=== PATIENT | male | born 1945 | race African-American/Black ===

== ENCOUNTER → 2016-06-26 | Outpatient (CLI) | payer MEDICARE, OTHER | LOC: OD 08:17 | PROVIDERS: ATTEND Radiology Radiation Oncology | DX: C61 Malignant neoplasm of prostate (principal) | CPT/HCPCS: 36415; 84153 ==

== ENCOUNTER → 2016-09-25 | Outpatient (CLI) | payer MEDICARE, OTHER | LOC: OD 15:06 | PROVIDERS: ATTEND Radiology Radiation Oncology | DX: C61 Malignant neoplasm of prostate (principal) | CPT/HCPCS: 36415; 84153 ==

== ENCOUNTER → 2017-01-05 | Outpatient (CLI) | payer MEDICARE, OTHER | LOC: OD 11:09 | PROVIDERS: ATTEND Radiology Radiation Oncology | DX: C61 Malignant neoplasm of prostate (principal) | CPT/HCPCS: 36415; 84153 ==

== ENCOUNTER → 2017-04-06 | Outpatient (CLI) | payer MEDICARE, OTHER | LOC: OD 13:04 | PROVIDERS: ATTEND Radiology Radiation Oncology | DX: C61 Malignant neoplasm of prostate (principal) | CPT/HCPCS: 36415; 84153 ==

== ENCOUNTER → 2017-10-22 | Outpatient (CLI) | payer MEDICARE, OTHER | LOC: OD 13:05 | PROVIDERS: ATTEND Radiology Radiation Oncology | DX: C61 Malignant neoplasm of prostate (principal); R97.20 Elevated prostate specific antigen [PSA] | CPT/HCPCS: 36415; 84153 ==

== ENCOUNTER → 2018-04-17 | Outpatient (CLI) | payer MEDICARE, OTHER | LOC: OD 13:43 | PROVIDERS: ATTEND Radiology Radiation Oncology | DX: C61 Malignant neoplasm of prostate (principal) | CPT/HCPCS: 36415; 84153 ==

== ENCOUNTER → 2019-06-03 | Outpatient (CLI) | payer MEDICARE, OTHER ==
[2019-06-03 17:26] LABS: ASPARTATE AMINO TRANSFERASE 42 U/L (17-59)
== END ==
LOC: OD 16:16
PROVIDERS: ATTEND Preventive Medicine Undersea and Hyperbaric Medicine
DX: B35.1 Tinea unguium (principal)
CPT/HCPCS: 36415; 84450; 84460

== ENCOUNTER → 2019-07-16 | Outpatient (CLI) | payer MEDICARE, OTHER ==
--- NOTE | 2019-07-17 12:22 | XCELERA REPORT ---
[address] [address] Lower Extremity Arterial Evaluation Name: LILIYA CASILLAS Age: 73 yrs Gender: Male : 1945 Patient Status: Outpatient Patient Location: [facility] Study Date: 07/16/2019 02:58 PM Procedure: A color flow and duplex scan of the lower extremity arteries was performed bilaterally with velocity and waveform anaylsis. Ankle brachial indicies performed. PPG's performed. Reason For Study: PAD Ordering Physician: MEAGHAN EDGE Performed By: Dejon Rosales Measurements and Calculations Right Left TELEGRAPHER AGENT PSV 105.6 101.2 cm/sec Prox PFA PSV -76.4 -91.5 cm/sec Prox SFA PSV 81.6 100.6 cm/sec Mid SFA PSV -88.2 -118.0cm/sec Dist SFA PSV -110.6 -79.4 cm/sec Prox Pop A PSV 75.1 67.7 cm/sec Dist JHONNY PSV 102.6 64.6 cm/sec Dist CASE RESOLUTION SPECIALIST PSV 102.6 98.2 cm/sec Lc Pedis PSV 91.2 78.6 cm/sec Right Side Arterial Evaluation Vessel boothe smooth, with on observed plaque. Normal velocity and triphasic waveforms noted from the Common Femoral artery to the infrageniculate vessels . Ankle Brachial index 1.13. PPG's are multiphasic, normal amplitude. Left Side Arterial Evaluation Vessel boothe smooth, with on observed plaque. Normal velocity and triphasic waveforms noted from the Common Femoral artery to the infrageniculate vessels . Ankle Brachial index 1.10. PPG's are multiphasic, normal amplitude. Interpretation Summary No hemodynamically significant lesions in the bilateral lower extremities, on duplex imaging, at rest. TYLOR's are normal, suggesting absence of significant arterial obstructive disease. PPG' are normal, suggesting normal arterial supply at the digital level. : MEAGHAN EDGE > Kaz Morillo
== END ==
LOC: SP 14:25
PROVIDERS: ATTEND Preventive Medicine Undersea and Hyperbaric Medicine
DX: I70.25 Atherosclerosis of native arteries of other extremities with ulceration (principal)
CPT/HCPCS: 93922; 93925

== ENCOUNTER 2020-03-10 06:33 | Day surgery (SDC) | payer MEDICARE, OTHER ==
[~2020-03-10 06:33] MED LIST: ACETAMINOPHEN 1,000 MG/100 ML RTUPB IV ONE; CEFAZOLIN 1 GM/D5W RTU 1 GM/50 ML RTUPB IV PRN; CLINDAMYCIN 600 MG/D5W RTU 600 MG/50 ML RTUPB IV PRN; DEXMEDETOMIDINE INJ 80 MCG/20 ML VIAL IV ONE; MIDAZOLAM 2 MG/2 ML INJ ONE; MORPHINE SULFATE 10 MG/ML INJ ONE; ONDANSETRON HCL INJ/PF 4 MG/2 ML SDV ONE; PROPOFOL INJ 200 MG/20 ML VIAL IV ONE
[2020-03-10] MEDS ORDERED: BUPIVACAINE HCL 0.5 % INJ/PF 30 ML SDV ONE ×3 (06:34→08:07)
[2020-03-10] MEDS ORDERED: LIDOCAINE 2% INJ (20 MG/ML) 20 ML MDV ONE ×2 (06:34→07:15)
[2020-03-10] MEDS ORDERED: LIDOCAINE 0.5% INJ-PF (5 MG/ML) 50 ML SDV ONE (08:06)
[2020-03-10] MEDS: BACITRACIN INJ 50,000 UNIT VIAL ONE ×2 (08:22→08:31)
[2020-03-10] MEDS: POLYMYXIN B SULFATE INJ 500000 UNIT VIAL ONE ×2 (08:22→08:31)
[2020-03-10] MEDS: BUPIVACAINE INJ/PF LIPOSOME/PF 266 MG/20 ML SDV ONE ×2 (08:23→09:12)
[2020-03-10] MEDS: NORMAL SALINE INJ/PF 0.9% 10 ML SDV ONE ×2 (08:23→08:31)
--- NOTE | 2020-03-10 09:46 | Operative Report ---
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 POSTOPERATIVE DIAGNOSIS: Same. OPERATION: Arthroplasty of the first metatarsophalangeal joint with insertion of Arriaza double stem implant, right foot. SURGEON: MEAGHAN PIEDRA ANIMAL LABORATORY HELPER: JESUS DANIEL ANESTHESIA: LMAC COMPLICATIONS: None. ESTIMATED BLOOD LOSS: Less than 1.0 mL. PROCEDURE: On 03/10/2020 patient was admitted surgery care with complaint of painful right foot. Patient was taken the operating room where following the induction of intravenous sedation and regional local anesthesia to the right foot, the patient's right foot and extremity were prepped and draped in usual sterile manner. At that time attention was directed to the dorsal aspect of the first metatarsal phalangeal joint, where a 5 cm linear incision was placed medial to the long extensor tendon. Incision was deepened through the subcutaneous tissue, all bleeding vessels were cauterized or clamped as necessary for hemostasis. Incision was carried down to the capsular and periosteal structures, for the long extensor tendon was identified freed from surrounding soft tissue attachments and retracted laterally for preservation. Should be noted that there was some yellowish degeneration of the proximal portion of the long extensor tendon. An incision was made into the capsular and periosteal structures in a similar fashion as the skin incision. Capsular structures were freed from the surrounding soft tissue attachments and retracted mediolaterally for preservation. Utilizing a power sagittal saw the base of the proximal phalanx was osteotomized perpendicular to its long axis and approximately 1 cm distal to its base. The head of the first metatarsal was likewise osteotomized parallel to the original osteotomy of the base of the phalanx and removing approximately 2 mm wedge of bone from the head of the metatarsal. Bone fragments were removed in toto. Although osteophytes and hypertrophic bone formation was then removed with a combination of hand-held and power instrumentation. At that time a drill hole was placed in the first metatarsal shaft approximately midline likewise similar drill hole was placed into the base of proximal phalanx this was performed with a cross cut rotary rasp. At that time the medullary canals were then reamed with a [employer] tree type rasp, and a 4S sizer was trialed in both the proximal and distal portions of the canals. The canals were further reamed as needed for proper fit of the implant. A 4 S sizer was inserted x-rays were obtained, this felt this is a proper size and fit for this patient. At that time all remaining sharp osseous edges were then rasped smooth with a [employer] type rest, there was flushed with copious amounts of sterile antibiotic solution and inspected for any soft tissue restless breathing with none being noted. At that time for 4S double stemmed Arriaza implant was obtained, the grommets were inserted and lightly impacted in the medullary canals on the metatarsal and the base of the phalanx. The implant was then inserted first into the metatarsal and then into the phalanx, was placed through a range of motion was noted to be excellent and the implant appeared to be of proper fit. At that time fluoroscopic studies were obtained to verify placement and fit of the implant. At that time the capsular periosteal structures were coaptated and maintained with 3-0 Vicryl simple suture. The subcutaneous tissue was then coapted and maintained with simple interrupted suture of 4-0 Vicryl. Exparel was then injected subcuticular in the periwound area. The incision was then coapted and maintained with interrupted horizontal mattress suture of 5-0 nylon. A sterile dressing consisting of Jamel silk, 4 x 4's, conform, Kerlix and Coban was applied to the patient's right foot. Tourniquet was rapidly deflated capillary filling time was noted to be instantaneous to all digits. The patient appeared to tolerate the surgery and anesthesia well and was transferred to recovery further monitored by the [facility] department.
--- NOTE | 2020-03-10 09:49 | PDOC DISCHARGE SUMMARY ---
Discharge Summary-[facility] Discharge Summary: On 03/10/2020 patient was admitted surgery care with complaint of a painful right foot was taken the operating room where implant arthroplasty of the first metatarsophalangeal joint of the right foot was performed. Patient appeared to tolerate surgery anesthesia well was later discharged and surgery care with prescriptions for Demerol, Phenergan, postoperative surgical shoe was dispensed, follow-up appointment for 1 week.
--- NOTE | 2020-03-10 12:10 | RADIOLOGY REPORT (SQ) ---
EXAM DESCRIPTION: NO CHG FLUORO; FOOT RIGHT 2 VIEWS IMAGES COMPLETED DATE/TIME: 03/10/2020 10:05 am REASON FOR STUDY: RIGHT FOOT BUNIONECTOMY/IMPLANT PLACMT ASSISTED WITH FLUORO IN OR COMPARISON: None. FLUOROSCOPY TIME: 9 seconds 2 Images saved to PACS LIMITATIONS: None. PROCEDURE: Bunionectomy with implant placement FINDINGS: Images from fluoro document the procedure. IMPRESSION: Bunionectomy with implant placement. Refer to operative note for further information. COMMENT: PQRS 6045F: Fluoroscopy time of the procedure is documented in the report. TECHNICAL DOCUMENTATION: JOB ID: [id number] 2010 [employer]- All Rights Reserved Reading location - IP/workstation name: [email or web address]
--- NOTE | 2020-03-10 12:10 | RADIOLOGY REPORT (SQ) ---
EXAM DESCRIPTION: NO CHG FLUORO; FOOT RIGHT 2 VIEWS IMAGES COMPLETED DATE/TIME: 03/10/2020 10:05 am REASON FOR STUDY: RIGHT FOOT BUNIONECTOMY/IMPLANT PLACMT ASSISTED WITH FLUORO IN OR COMPARISON: None. FLUOROSCOPY TIME: 9 seconds 2 Images saved to PACS LIMITATIONS: None. PROCEDURE: Bunionectomy with implant placement FINDINGS: Images from fluoro document the procedure. IMPRESSION: Bunionectomy with implant placement. Refer to operative note for further information. COMMENT: PQRS 6045F: Fluoroscopy time of the procedure is documented in the report. TECHNICAL DOCUMENTATION: JOB ID: [id number] 2010 [employer]- All Rights Reserved Reading location - IP/workstation name: [email or web address]
== END 2020-03-10 10:25 ==
LOC: SC 06:33
PROVIDERS: ATTEND Preventive Medicine Undersea and Hyperbaric Medicine
DX: M19.071 Primary osteoarthritis, right ankle and foot (principal); M20.21 Hallux rigidus, right foot; Z03.818 Encounter for observation for suspected exposure to other biological agents ruled out; D86.9 Sarcoidosis, unspecified; M10.9 Gout, unspecified; F17.210 Nicotine dependence, cigarettes, uncomplicated; I10 Essential (primary) hypertension; D64.9 Anemia, unspecified; K21.9 Gastro-esophageal reflux disease without esophagitis
CPT/HCPCS: 82962; 73620; 28291; U0003; J2250; J3490 ×6; J2270; J2405; J2704; J0131; C9290; C9803; 87635; C1776; L3260